=== PATIENT | female | born 1980 | race Two or more races ===

== ENCOUNTER 2016-12-28 14:51 | Emergency (ER) | payer MEDICAID ==
[~2016-12-28] VITALS: Ht 165.1 cm; Wt 81.6 kg
[2016-12-28 15:05] VITALS: BP 104/64
[2016-12-28] MEDS ORDERED: KETOROLAC TROMETH 60MG/2ML VIAL IM ONE (16:00)
== END 2016-12-28 17:00 | disposition home or self-care (01) ==
LOC: ER 14:55
DX: S46.912A Strain of unspecified muscle, fascia and tendon at shoulder and upper arm level, left arm, initial encounter (principal); V49.49XA Driver injured in collision with other motor vehicles in traffic accident, initial encounter; Y93.89 Activity, other specified; Y99.8 Other external cause status; Y92.410 Unspecified street and highway as the place of occurrence of the external cause
CPT/HCPCS: 73030; 96372; 99284; J1885